=== PATIENT | male | born 1945 | race Caucasian/White ===

== ENCOUNTER 2018-08-12 09:54 | Emergency (ER) | payer OTHER, SELFPAY ==
[2018-08-12 09:58] VITALS: BP 156/74; PULSE 63; RESP 20; TEMP 37.1; O2SAT 92
[2018-08-12 11:11] VITALS: BP 147/78; PULSE 51; RESP 18; TEMP 37.2; O2SAT 94
[2018-08-12 11:34] LABS: Add Manual Diff / Slide Review NO; Basophils Percent Auto 0.4 % (0-2); Eosinophils Percent Auto 0.4 % (2-4); Hemoglobin 13.6 g/dL (13.5-17.5); Mean Corpuscular HGB Conc 33.9 % (30-36); Mean Corpuscular Hemoglobin 31.1 PG (26-34); Mean Corpuscular Volume 91.8 fL (80-100); Monocytes Percent Auto 11.6 % (3-14); Neutrophils Absolute Auto 7500 /uL (1500-7000); Neutrophils Percent Auto 81.6 % (50-75); Platelet Count 220 X10^3/uL (150-400); Red Blood Cell Count 4.36 X10^6/uL (4.5-5.9); Red Cell Distribution Width 13.6 % (11.6-14.8); White Blood Cell Count 9.2 X10^3/uL (4.5-11.0)
[2018-08-12 11:45] LABS: Alanine Aminotransferase 18 IU/L (21-72); Albumin 3.3 g/dL (3.5-5.0); Alkaline Phosphatase 72 U/L (38-126); Aspartate Aminotransferase 12 IU/L (17-59); BUN Creatinine Ratio 17.8 (6-22); Bilirubin Total 1.2 mg/dL (0.2-1.3); Blood Urea Nitrogen 32 mg/dL (9-20); Calcium 8.9 mg/dL (8.4-10.2); Carbon Dioxide 25 mmol/L (22-32); Chloride 99 mmol/L (98-107); Estimated Glomerular Filt Rate 37.4 mL/min (>60); Globulin 3.2 g/dL (1.7-4.1); Glucose 151 mg/dL (80-110); HEMOLYSIS < 15 (0-50); Sodium 133 mmol/L (137-145); Total Protein 6.5 g/dL (6.3-8.2); Uric Acid 9.3 mg/dL (3.5-8.5)
[2018-08-12 12:02] VITALS: BP 169/71; PULSE 52; O2SAT 98
--- NOTE | 2018-08-12 13:19 | ED_ITS ---
HPI - Extremity Problem <MISHA Chen - Last Filed: 08/12/18 22:15> General Chief complaint: Extremity Problem,Nontraumatic Stated complaint: SWOLLEN RIGHT ARM Time Seen by Provider: 08/12/18 12:33 Source: patient Mode of arrival: ambulatory Limitations: no limitations History of Present Illness HPI Narrative: 73-year-old male with history of diabetes is a former smoker here for complaint of pain into his right wrist and right hand that started earlier today. He denies any trauma to the area. He reports increased pain with movement and palpation of the area. No fevers no chills. He is concerned for gout as his father has had gout. He denies having a diagnosis of gout in the past. He denies any other concerns or complaints at this time. MD Complaint: joint swelling Related Data Home Medications Medication Instructions Recorded Confirmed Insulin 5 units SUBCUT QPM 08/12/18 08/12/18 amlodipine 10 mg PO DAILY 08/12/18 08/12/18 apixaban 5 mg PO BID 08/12/18 08/12/18 cephalexin 500 mg PO BID 08/12/18 08/12/18 cholecalciferol (vitamin D3) 4,000 unit PO DAILY 08/12/18 08/12/18 [Vitamin D3] cyanocobalamin (vitamin B-12) 500 mcg PO DAILY 08/12/18 08/12/18 duloxetine 60 mg PO DAILY 08/12/18 08/12/18 furosemide 60 mg PO DAILY 08/12/18 08/12/18 gel dressing [Curafil Gel Wound] 08/12/18 08/12/18 glimepiride 1 mg PO QAM 08/12/18 08/12/18 glucose 4 tab PO PRN PRN 08/12/18 08/12/18 lisinopril 20 mg PO QPM 08/12/18 08/12/18 nortriptyline 50 mg PO BEDTIME 08/12/18 08/12/18 oxycodone 08/12/18 sildenafil 100 mg PO PRN PRN MDD 1 08/12/18 08/12/18 simvastatin 20 mg PO QPM 08/12/18 08/12/18 terazosin 6 mg PO BEDTIME 08/12/18 08/12/18 Previous Rx's Medication Instructions Recorded clindamycin HCl 300 mg PO QID #28 cap 08/12/18 prednisone 40 mg PO DAILY #8 tab 08/12/18 Allergies Allergy/AdvReac Type Severity Reaction Status Date / Time No Known Drug Allergies Allergy Verified 08/12/18 09:58 Review of Systems <MISHA Chen - Last Filed: 08/12/18 22:15> Constitutional Denies chills, Denies fever(s), Denies lethargy and Denies weakness Eyes Denies change in vision, Denies eye discharge, Denies irritation and Denies loss of vision ENT Ears, Nose, Mouth, and Throat: Denies change in voice, Denies neck pain and Denies sore throat Cardiovascular Denies chest pain, Denies irregular heart rhythm, Denies lightheadedness, Denies palpitations, Denies dyspnea, Denies dyspnea on exertion and Denies orthopnea Respiratory Denies cough, Denies dyspnea, Denies dyspnea on exertion and Denies wheezing Gastrointestinal Gastrointestinal: Denies abdominal pain, Denies change in bowel habits, Denies diarrhea, Denies nausea and Denies vomiting Genitourinary Denies hematuria, Denies flank pain, Denies urinary incontinence and Denies urinary urgency Musculoskeletal Denies neck pain Comments: Pain and redness to right wrist and hand Integumentary/Breasts Denies pruritus, Denies erythema, Denies rash and Denies wounds Neurologic Denies confusion, Denies loss of vision and Denies weakness Psychiatric Denies anxiety, Denies confusion, Denies depression, Denies homicidal ideation and Denies suicidal ideation Endocrine Denies palpitations Hematologic/Lymphatic Denies easy bruising Allergic/Immunologic Denies wheezing Exam <MISHA Chen - Last Filed: 08/12/18 22:15> Initial Vital Signs Initial Vital Signs: Vital Signs Temperature 98.7 F 08/12/18 09:58 Pulse Rate 63 08/12/18 09:58 Respiratory Rate 20 08/12/18 09:58 Blood Pressure 156/74 H 08/12/18 09:58 Pulse Oximetry 92 08/12/18 09:58 Const General: cooperative and well developed Nutritional Appearance: well nourished Orientation: alert, awake, oriented x3 and not confused HENMT Mouth: oral mucosae normal and moist mucous membranes Eyes Conjunctivae: conjunctivae normal Sclera: sclerae normal Pupils: PERRL EOM: EOM intact bilaterally Resp Effort & Inspection: normal respiratory effort, able to speak in complete sentences, no respiratory distress and no use of accessory muscles Auscultation: clear to auscultation bilaterally, no rales, no rhonchi and no wheezes Cardio Rate: regular rate Rhythm: regular rhythm Heart Sounds: no click, no gallops, no murmurs and no rubs Pulses: normal peripheral pulses Skin General: no rashes or lesions noted, No jaundice and No petechiae Neuro General: alert, oriented x3, gait normal and no focal motor deficits Speech: speech normal Extrem Other: Right wrist and right hand with slight swelling and erythema. Increased warmth on palpation distal sensation is intact. Distal range of motion is intact. No fluctuance no induration. Distal pulses are intact. <Sahsa Gates DO - Last Filed: 08/15/18 09:10> Initial Vital Signs Initial Vital Signs: Vital Signs Temperature 98.7 F 08/12/18 09:58 Pulse Rate 63 08/12/18 09:58 Respiratory Rate 20 08/12/18 09:58 Blood Pressure 156/74 H 08/12/18 09:58 Pulse Oximetry 92 08/12/18 09:58 Course <MISHA Chen - Last Filed: 08/12/18 22:15> Orders Ordered: ED Orders 08/12/18 11:27 CBC [Complete Blood Count AUTO DIFF] Stat CMP [Comprehensive Metabolic Panel] Stat Uric Acid Stat Vital Signs - 8 hr 08/12/18 09:58 08/12/18 11:11 08/12/18 12:02 Temperature 98.7 F 98.9 F Pulse Rate 63 51 L 52 L Respiratory Rate 20 18 Blood Pressure 156/74 H Blood Pressure [Left Arm] 147/78 H 169/71 H Pulse Oximetry 92 94 98 <Sasha Gates DO - Last Filed: 08/15/18 09:10> Orders Ordered: ED Orders 08/12/18 11:27 CBC [Complete Blood Count AUTO DIFF] Stat CMP [Comprehensive Metabolic Panel] Stat Uric Acid Stat Vital Signs - 8 hr 08/12/18 09:58 08/12/18 11:11 08/12/18 12:02 Temperature 98.7 F 98.9 F Pulse Rate 63 51 L 52 L Respiratory Rate 20 18 Blood Pressure 156/74 H Blood Pressure [Left Arm] 147/78 H 169/71 H Pulse Oximetry 92 94 98 MDM - Extremity (Nontraumatic) <MISHA Chen - Last Filed: 08/12/18 22:15> Lab Data Result diagrams: 08/12/18 11:27 08/12/18 11:27 Lab Results 08/12/18 08/12/18 Range/Units 11:27 11:27 WBC 9.2 (4.5-11.0) X10^3/uL RBC 4.36 L (4.5-5.9) X10^6/uL Hgb 13.6 (13.5-17.5) g/dL Hct 40.0 L (41-53) % MCV 91.8 (80-100) fL MCH 31.1 (26-34) PG MCHC 33.9 (30-36) % RDW 13.6 (11.6-14.8) % Plt Count 220 (150-400) X10^3/uL Neut % (Auto) 81.6 H (50-75) % Lymph % (Auto) 6.0 L (25-40) % [place] % (Auto) 11.6 (3-14) % Eos % (Auto) 0.4 L (2-4) % Baso % (Auto) 0.4 (0-2) % Neut # (Auto) 7500 H (2877-9218) /uL Sodium 133 L (137-145) mmol/L Potassium 4.0 (3.4-5.1) mmol/L Chloride 99 (98-107) mmol/L Carbon Dioxide 25 (22-32) mmol/L BUN 32 H (9-20) mg/dL Creatinine 1.80 H (0.66-1.25) mg/dL Estimated GFR 37.4 L (>60) mL/min BUN/Creatinine Ratio 17.8 (6-22) Glucose 151 H (80-110) mg/dL Uric Acid 9.3 H (3.5-8.5) mg/dL Calcium 8.9 (8.4-10.2) mg/dL Total Bilirubin 1.2 (0.2-1.3) mg/dL AST 12 L (17-59) IU/L ALT 18 L (21-72) IU/L Alkaline Phosphatase 72 (38-126) U/L Total Protein 6.5 (6.3-8.2) g/dL Albumin 3.3 L (3.5-5.0) g/dL Globulin 3.2 (1.7-4.1) g/dL Albumin/Globulin Ratio 1.0 (1.0-2.8) MDM Narrative Medical decision making narrative: CBC was negative for elevated white count. Chem panel shows a decreased GFR and elevated creatinine. Patient states that this is not a new finding. Uric acid was elevated at 9.3. Differential between gout and cellulitis. Due to decreased GFR will limit treatment to oral steroids. He is placed on short course of prednisone. [id number] Tylenol as needed for any discomfort. Plenty of fluids and gout diet. He is also provided with a prescription for clindamycin and instructed to start using clindamycin if symptoms worsen or do not improve in the next day or 2. Follow up with primary care provider the next few days for re-evaluation. If any worsening symptoms return to the emergency room. <Sasha Gates, DO - Last Filed: 08/15/18 09:10> Lab Data Lab Results 08/12/18 08/12/18 Range/Units 11:27 11:27 WBC 9.2 (4.5-11.0) X10^3/uL RBC 4.36 L (4.5-5.9) X10^6/uL Hgb 13.6 (13.5-17.5) g/dL Hct 40.0 L (41-53) % MCV 91.8 (80-100) fL MCH 31.1 (26-34) PG MCHC 33.9 (30-36) % RDW 13.6 (11.6-14.8) % Plt Count 220 (150-400) X10^3/uL Neut % (Auto) 81.6 H (50-75) % Lymph % (Auto) 6.0 L (25-40) % [place] % (Auto) 11.6 (3-14) % Eos % (Auto) 0.4 L (2-4) % Baso % (Auto) 0.4 (0-2) % Neut # (Auto) 7500 H (3644-0137) /uL Sodium 133 L (137-145) mmol/L Potassium 4.0 (3.4-5.1) mmol/L Chloride 99 (98-107) mmol/L Carbon Dioxide 25 (22-32) mmol/L BUN 32 H (9-20) mg/dL Creatinine 1.80 H (0.66-1.25) mg/dL Estimated GFR 37.4 L (>60) mL/min BUN/Creatinine Ratio 17.8 (6-22) Glucose 151 H (80-110) mg/dL Uric Acid 9.3 H (3.5-8.5) mg/dL Calcium 8.9 (8.4-10.2) mg/dL Total Bilirubin 1.2 (0.2-1.3) mg/dL AST 12 L (17-59) IU/L ALT 18 L (21-72) IU/L Alkaline Phosphatase 72 (38-126) U/L Total Protein 6.5 (6.3-8.2) g/dL Albumin 3.3 L (3.5-5.0) g/dL Globulin 3.2 (1.7-4.1) g/dL Albumin/Globulin Ratio 1.0 (1.0-2.8) Discharge Plan Departure Patient Disposition: Home Clinical Impression: Gout attack Discharge Date/Time: 08/12/18 13:38 Interventions: ED Discharge Assessment Last Done: 08/12/18 13:37 Instructions: DI for Gout Activity Restrictions/Additional Instructions: Laboratory results today showed increased uric acid which is associated with gout. Plenty of fluids and gout diet. Short course of prednisone as prescribed to help with inflammation. Monitor blood sugars over as the prednisone can cause increased blood sugars. Also use [id number] Tylenol as needed for any discomfort. Differential of redness and pain due to infection. Urine prescribed an antibiotic called clindamycin. If symptoms do not resolve or worsen started taking clindamycin as prescribed. Follow up with her primary care provider in the next few days for re-evaluation. If any worsening symptoms return to the emergency room. Prescriptions: New clindamycin HCl 300 mg capsule 300 mg PO QID Qty: 28 RF: 0 prednisone 20 mg tablet 40 mg PO DAILY Qty: 8 RF: 0 No Action furosemide 40 mg Tablet 60 mg PO DAILY RF: 0 cyanocobalamin (vitamin B-12) 1,000 mcg Tablet 500 mcg PO DAILY RF: 0 glimepiride 1 mg Tablet 1 mg PO QAM RF: 0 amlodipine 10 mg Tablet 10 mg PO DAILY RF: 0 cephalexin 500 mg Capsule 500 mg PO BID RF: 0 glucose 4 gram Tablet,Chewable 4 tab PO PRN PRN (Reason: blood glucose of 70 or less) RF: 0 gel dressing [Curafil Gel Wound] Gel RF: 0 duloxetine 60 mg Capsule,Delayed Release(Dr/Ec) 60 mg PO DAILY RF: 0 cholecalciferol (vitamin D3) [Vitamin D3] 1,000 unit Tablet 4,000 unit PO DAILY RF: 0 lisinopril 20 mg Tablet 20 mg PO QPM RF: 0 sildenafil 100 mg Tablet 100 mg PO PRN MDD 1 PRN (Reason: Erectile Dysfunction) RF: 0 simvastatin 40 mg Tablet 20 mg PO QPM RF: 0 terazosin 2 mg Capsule 6 mg PO BEDTIME RF: 0 nortriptyline 50 mg Capsule 50 mg PO BEDTIME RF: 0 apixaban 5 mg Tablet 5 mg PO BID RF: 0 Insulin 5 units subcut QPM RF: 0 oxycodone RF: 0 Referrals: [facility] [Provider Group] <Sasha Gates DO - Last Filed: 08/15/18 09:10> [facility] I was immediately available in the department for consultation. This documentation has been reviewed and I agree with assessment and plan. Supervised by Sasha Gates DO
[2018-08-12 13:30] VITALS: BP 149/81; PULSE 60; RESP 19; O2SAT 96
== END 2018-08-12 13:38 | disposition home or self-care (01) ==
PROVIDERS: Emergency Medicine; Emergency Provider Nurse Practitioner Family
DX: M10.9 Gout, unspecified (principal)
CPT/HCPCS: 36415; 80053; 84550; 85025; 99283